=== PATIENT | male | born 1980 | race Caucasian/White ===

== ENCOUNTER 2021-05-29 16:44 | Emergency (ER) | payer OTHER ==
[2021-05-29] MEDS ORDERED: Lidocaine 1% PF 5 ML VIAL ONE (16:54)
[2021-05-29] MEDS ORDERED: Boostrix 0.5 ML (Tdap) VIAL ONE (17:10)
[2021-05-29] MEDS ORDERED: HYDROcodone/Acetaminophen 5/325 mg Tablet ONE (18:35)
== END 2021-05-29 18:37 | disposition home or self-care (01) ==
LOC: BURERS 16:44
DX: S61.011A Laceration without foreign body of right thumb without damage to nail, initial encounter (principal); F17.210 Nicotine dependence, cigarettes, uncomplicated; Z23 Encounter for immunization; W26.8XXA Contact with other sharp object(s), not elsewhere classified, initial encounter; Y92.89 Other specified places as the place of occurrence of the external cause; Y99.0 Civilian activity done for income or pay
CPT/HCPCS: 12002; 90471; 90715